=== PATIENT | female | born 1975 ===

== ENCOUNTER → 2022-08-15 14:54 | Outpatient (CLI) | payer OTHER, SELFPAY ==
--- NOTE | ~2022-08-15 | MR_ITS ---
MRI of the right wrist Technique: Coronal T1 weighted and proton density fat sat images, and axial and sagittal proton-densi ty and proton-density fat-sat images were acquired. Clinical History: Pain Findings: Scapholunate ligament is intact, and there is no widening of the scapholunate interval. Michaela otriquetral ligament is intact. TFCC is intact, without evidence of perforation/tear. Bone marrow signals are unremarkable. No significant joint effusion. Flexor and extensor tendons are unremarkable. No tenosynovitis or tendon rupture evident. There is ex tensive subcutaneous soft tissue edema over the dorsal aspect of the wrist and hand. No abscess evide nt. No soft tissue mass identified. IMPRESSION: Extensive dorsal subcutaneous soft tissue edema of the wrist/hand. Correlate for cellulitis. No absce ss. No osseous or articular abnormality evident. Reviewed, dictated and finalized at [facility]. IMPRESSION: Extensive dorsal subcutaneous soft tissue edema of the wrist/hand. Correlate fo r cellulitis. No abscess. No osseous or articular abnormality evident.
== END ==
DX: M25.531 Pain in right wrist (principal)
CPT/HCPCS: 73221